=== PATIENT | female | born 1945 ===

== ENCOUNTER 2024-02-13 12:15 | Inpatient (IN) | payer OTHER ==
[~2024-02-13] VITALS: Ht 154.9 cm; Wt 57.6 kg
[2024-02-13] MEDS ORDERED: ELIQUIS2.5 MG (13:41)
[2024-02-13] MEDS ORDERED: PROTONIX40 MG (13:41)
[2024-02-13] MEDS ORDERED: ARICEPT10 MG (13:42)
[2024-02-13] MEDS ORDERED: LIPITOR 10MG (13:42)
[2024-02-13] MEDS ORDERED: REMERON15 MG (13:42)
[2024-02-13] MEDS ORDERED: OXYBUTYNIN CHLOR5 GM (13:43)
[2024-02-13] MEDS ORDERED: ACTONEL150 MG (13:43)
[2024-02-13 13:44] VITALS: BP 118/73
[2024-02-13] MEDS ORDERED: LOSARTAN POTASS25 MG (13:51)
[2024-02-18] MEDS ORDERED: LIPITOR20 MG (08:14)
[2024-02-18] MEDS ORDERED: METRONIDAZOLE/SODIUM CHLORIDE 500 MG/100 ML PIGGYBACK IV ONE ×2 (11:30)
[2024-02-18] MEDS ORDERED: CHLORHEXIDINE GLUCONATE 120 ML BOTTLE TOP ONE (11:30)
[2024-02-18] MEDS ORDERED: CEFTRIAXONE SODIUM 2,000 MG VIAL IV ONE (11:30)
[2024-02-18] MEDS ORDERED: BUPIVACAINE HCL 30 ML VIAL IJ ONE (11:30)
[2024-02-18] MEDS ORDERED: LIDOCAINE HCL 1%/EPINEPHRINE 20ML VIAL IJ ONE (11:30)
[2024-02-18] MEDS ORDERED: DEXTROSE 50 % IN WATER 0.5 G/ML DISP.SYRIN IV PRN (12:30)
[2024-02-18] MEDS ORDERED: 0.9 % SODIUM CHLORIDE 1,000 ML IV SCH (12:30)
[2024-02-18] MEDS ORDERED: ONDANSETRON HCL 2 MG/ML VIAL IV PRN (12:30)
[2024-02-18] MEDS ORDERED: MORPHINE SULFATE 4 MG/ML CARTRIDGE IV PRN (12:30)
[2024-02-18] MEDS ORDERED: OxyCODONE HCL 5 MG TABLET (ROXICODONE) PO PRN (12:30)
[2024-02-18] MEDS ORDERED: HYOSCYAMINE SULFATE 0.125 MG TAB.SUBL SL SCH (13:00)
[2024-02-18] MEDS ORDERED: MORPHINE SULFATE 4 MG/ML VIAL IV ONE ×2 (13:25→14:25)
[2024-02-18] MEDS ORDERED: ACETAMINOPHEN 500 MG GEL..CAP PO SCH (14:00)
[2024-02-18 15:07] LABS: ALBUMIN 3.9 gm/dL (3.4-5.0); CALCIUM 8.9 mg/dL (8.5-10.1); CREATININE SERUM 1.03 mg/dL (0.55-1.02); GFR 51.56; MAGNESIUM 1.9 mg/dL (1.8-2.4); PHOSPHOROUS 3.5 mg/dL (2.5-4.9); POTASSIUM 4.09 mEq/L (3.5-5.1)
[2024-02-18 16:04] LABS: HEMATOCRIT 36.9 % (36.0-45.00); HEMOGLOBIN 12.3 g/dL (12.0-15.00); MEAN CELL VOLUME 93.2 fL (80.00-100.00); MEAN CORPUSCULAR HGB CONC 33.3 g/dl (32.0-36.0); PLATELET COUNT 241 K/uL (150-450); RED BLOOD COUNT 3.96 M/uL (4.00-6.00); RED CELL DISTRIBUTION WIDTH 14.3 % (11.5-14.5)
[2024-02-18] MEDS ORDERED: METRONIDAZOLE/SODIUM CHLORIDE 500 MG/100 ML PIGGYBACK IV SCH (17:00)
[2024-02-18] MEDS ORDERED: DONEPEZIL HCL 10 MG TABLET PO SCH (17:00)
[2024-02-18] MEDS ORDERED: POLYETHYLENE GLYCOL 3350 17 GM BLIST.PACK PO SCH (17:00)
[2024-02-18 17:40] VITALS: BP 118/73; O2SAT 96
[2024-02-18] MEDS ORDERED: FAMOTIDINE/PF 20 MG/2 ML VIAL IV PUSH SCH (21:00)
[2024-02-19 00:22] VITALS: BP 106/69; O2SAT 96
[2024-02-19 07:13] LABS: HEMATOCRIT 34.5 % (36.0-45.00); HEMOGLOBIN 11.6 g/dL (12.0-15.00); MEAN CELL VOLUME 92.5 fL (80.00-100.00); MEAN CORPUSCULAR HEMOGLOBIN 31.2 pg (27.00-32.0); MEAN CORPUSCULAR HGB CONC 33.8 g/dl (32.0-36.0); PLATELET COUNT 210 K/uL (150-450); RED BLOOD COUNT 3.73 M/uL (4.00-6.00); RED CELL DISTRIBUTION WIDTH 14.3 % (11.5-14.5)
[2024-02-19 07:30] VITALS: BP 142/65; O2SAT 100
[2024-02-19 07:49] LABS: ALBUMIN 3.2 gm/dL (3.4-5.0); CALCIUM 7.9 mg/dL (8.5-10.1); CREATININE SERUM 0.94 mg/dL (0.55-1.02); GFR 57.29; MAGNESIUM 1.8 mg/dL (1.8-2.4); PHOSPHOROUS 3.1 mg/dL (2.5-4.9); POTASSIUM 4.43 mEq/L (3.5-5.1)
[2024-02-19] MEDS ORDERED: LOSARTAN POTASSIUM 25 MG TABLET PO SCH (09:00)
[2024-02-19] MEDS ORDERED: LACTOBACILLUS ACIDOPHILUS 1 CAP CAP PO SCH (09:00)
[2024-02-19 16:29] VITALS: BP 145/67; O2SAT 96
[2024-02-19] MEDS ORDERED: ENOXAPARIN SODIUM 40 MG/0.4 ML SYRINGE SUBCUTANEO SCH (17:00)
[2024-02-20 00:39] VITALS: BP 144/89; O2SAT 97
[2024-02-20 08:58] VITALS: BP 134/81; O2SAT 98
[2024-02-20] MEDS ORDERED: ENOXAPARIN SODIUM 40 MG/0.4 ML SYRINGE SUBCUTANEO SCH (09:00)
[2024-02-20 17:43] VITALS: BP 169/89; O2SAT 97
[2024-02-21 00:10] VITALS: BP 135/77; O2SAT 97
[2024-02-21 08:29] VITALS: BP 122/69; O2SAT 92
[2024-02-21 11:25] LABS: HEMATOCRIT 33.4 % (36.0-45.00); HEMOGLOBIN 11.3 g/dL (12.0-15.00); MEAN CELL VOLUME 93.2 fL (80.00-100.00); MEAN CORPUSCULAR HEMOGLOBIN 31.4 pg (27.00-32.0); MEAN CORPUSCULAR HGB CONC 33.6 g/dl (32.0-36.0); PLATELET COUNT 217 K/uL (150-450); RED BLOOD COUNT 3.59 M/uL (4.00-6.00); RED CELL DISTRIBUTION WIDTH 14.4 % (11.5-14.5)
[2024-02-21] MEDS ORDERED: INTESTINEX680 M1 PO (11:33)
[2024-02-21] MEDS ORDERED: PEPCID AC20 MG PO (11:33)
[2024-02-21] MEDS ORDERED: HYOSCYAMINE0.125 M1 SL (11:33)
[2024-02-21] MEDS ORDERED: TRAM1TAB98 PO (11:33)
[2024-02-21] MEDS ORDERED: QUESTRAN LIGHT210 GM PO (11:34)
[2024-02-21 12:07] LABS: CALCIUM 8.5 mg/dL (8.5-10.1); CREATININE SERUM 0.96 mg/dL (0.55-1.02); GFR 55.92; MAGNESIUM 1.8 mg/dL (1.8-2.4); POTASSIUM 4.13 mEq/L (3.5-5.1)
[2024-02-21 12:17] LABS: PHOSPHOROUS 1.4 mg/dL (2.5-4.9)
[2024-02-21] MEDS ORDERED: NAPH,MB-DB/K PH,MBDB 1 PKT PACKET PO STA (12:24)
[2024-02-22] MEDS ORDERED: FAMOTIDINE/PF 20 MG/2 ML VIAL IV PUSH SCH (09:00)
== END 2024-02-21 17:55 | disposition home or self-care (01) | DRG 330 ==
LOC: O/R 02-18 05:50 → SURH 02-18 11:00 → SURG 02-18 14:17
PROVIDERS: Surgery; ADMIT Surgery; ATTEND Surgery
PROC: 0DBP4ZZ Excision of Rectum, Percutaneous Endoscopic Approach (ICD-10-PCS; 2024-02-18)
PROC: 0DTN4ZZ Resection of Sigmoid Colon, Percutaneous Endoscopic Approach (ICD-10-PCS; principal; 2024-02-18 11:00)
DX: K57.20 Diverticulitis of large intestine with perforation and abscess without bleeding (principal); K56.601 Complete intestinal obstruction, unspecified as to cause